=== PATIENT | female | born 1955 | race Caucasian/White ===

== ENCOUNTER 2017-03-12 09:42 | Emergency (ER) | payer OTHER | END 2017-03-12 11:30 | disposition home or self-care (01) | LOC: ER 09:42 | DX: S51.812A Laceration without foreign body of left forearm, initial encounter (principal); R42 Dizziness and giddiness; F41.9 Anxiety disorder, unspecified; K50.90 Crohn's disease, unspecified, without complications; F17.210 Nicotine dependence, cigarettes, uncomplicated; Z79.899 Other long term (current) drug therapy; Z88.8 Allergy status to other drugs, medicaments and biological substances; X58.XXXA Exposure to other specified factors, initial encounter | CPT/HCPCS: 36415; 96361; 96374 ==